=== PATIENT | male | born 1975 ===

== ENCOUNTER 2018-03-31 18:40 | Emergency (ER) | payer MEDICAID, MEDICARE ==
[2018-03-31 18:51] VITALS: BP 155/93; PULSE 90; TEMP 98.5; O2SAT 99
[2018-03-31] MEDS ORDERED: Lidocaine Hydrochloride 5 ML INJ ONE (19:21)
--- NOTE | 2018-03-31 19:57 | C.PDOC ---
History Of Present Illness 42 y/o male presents to the ER for evaluation of right ear laceration sustained 1 hour [facility]. Patient states that he was moving a sharp object when the object cut him in the ear. Patient denies having other injuries. Time Seen by Provider: 03/31/18 18:56 Chief Complaint (Nursing): Abnormal Skin Integrity History Per: Patient History/Exam Limitations: no limitations Onset/Duration Of Symptoms: Hrs Current Symptoms Are (Timing): Still Present Severity: Moderate Past Medical History Reviewed: Historical Data, Nursing Documentation, Vital Signs Vital Signs: Last Vital Signs Temp 98.5 F 03/31/18 18:50 Pulse 90 03/31/18 18:50 Resp 18 03/31/18 18:50 BP 155/93 H 03/31/18 18:50 Pulse Ox 99 03/31/18 18:50 - Medical History PMH: No Chronic Diseases Surgical History: No Surg Hx Family History: States: No Known Family Hx - Social History Hx Alcohol Use: Yes Hx Substance Use: No - Immunization History Hx Tetanus Toxoid Vaccination: No Hx Influenza Vaccination: No Hx Pneumococcal Vaccination: No Review Of Systems Except As Marked, All Systems Reviewed And Found Negative. Skin: Positive for: Other (laceration to right ear) Physical Exam - Physical Exam Appears: Non-toxic, No Acute Distress Skin: Normal Color, Warm, Dry Head: Atraumatic, Normacephalic Eye(s): bilateral: Normal Inspection, PERRL, EOMI Ear(s): Left: Normal, Right: Other (2.5 cm linear laceration through scaphoid fossa) Nose: Normal Oral Mucosa: Moist Neck: Normal ROM, Supple Chest: Symmetrical Extremity: Normal ROM, No Swelling Neurological/Psych: Oriented x3, Normal Speech, Normal Cranial Nerves Gait: Steady ED Course And Treatment O2 Sat by Pulse Oximetry: 99 (RA) Pulse Ox Interpretation: Normal Laceration - Laceration Repair Right Ear Wound Length (In cm): 2.5 Description Of Wound: Linear Wound Cleansed With: Betadine, Sterile Saline Anesthesia: Lidocaine 1%, With Epi Wound Examination: Irrigated With Saline, No FB With Wound Exploration Wound Closure: Skin Glue, Suture Suture Technique And Material Used: Nylon (Five (4-0 Nylon)) Wound Complexity: Simple Medical Decision Making Medical Decision Making: Tetanus is up to date. Laceration Repair was performed. Patient tolerated well. Patient has been discharged and instructed to follow up with PMD in 2 days and suture removal in 7-10 days. Disposition - Disposition Referrals: Leo Weaver MD [Staff Provider] - Kenna Oglesby MD [Staff Provider] - Disposition: HOME/ ROUTINE Disposition Time: 19:57 Condition: STABLE Additional Instructions: KEEP THE AREA CLEAN AND DRY. FOLLOW UP WITH DOCTOR WITHIN 1-2 DAYS FOR WOUND CHECK. SUTURES TO BE REMOVED WITHIN 7-10 DAYS. Instructions: Laceration Repair Forms: [employer] (Iraqi) - Clinical Impression Clinical Impression: Laceration of ear - PA / [facility] MANAGER / Resident Statement MD/DO has reviewed & agrees with the documentation as recorded. - Scribe Statement The provider has reviewed the documentation as recorded by the Jazmyneibe Mely Rowe Provider Attestation All medical record entries made by the Scribe were at my direction and personally dictated by me. I have reviewed the chart and agree that the record accurately reflects my personal performance of the history, physical exam, medical decision making, and the department course for this patient. I have also personally directed, reviewed, and agree with the discharge instructions and disposition.
[2018-03-31 20:09] VITALS: RESP 20
== END 2018-03-31 20:08 | disposition home or self-care (01) ==
LOC: C.ER 18:40
DX: S01.311A Laceration without foreign body of right ear, initial encounter (principal); W45.8XXA Other foreign body or object entering through skin, initial encounter

== ENCOUNTER 2018-04-09 19:02 | Emergency (ER) | payer MEDICAID ==
[2018-04-09 19:07] VITALS: BP 128/88; PULSE 77; RESP 16; TEMP 98; O2SAT 98
--- NOTE | 2018-04-09 19:19 | C.PDOC ---
History Of Present Illness 42-year-old male, seen in ED for right ear laceration repair on 03/31/18, returns today for suture removal. Patient denies any fevers, nausea/vomiting, infection, or any other associated symptoms. No other complaints at this time. Time Seen by Provider: 04/09/18 19:07 Chief Complaint (Nursing): Suture/Staple Removal History Per: Patient History/Exam Limitations: no limitations Past Medical History Reviewed: Historical Data, Nursing Documentation, Vital Signs Vital Signs: Last Vital Signs Temp 98.0 F 04/09/18 19:05 Pulse 77 04/09/18 19:05 Resp 16 04/09/18 19:05 BP 128/88 04/09/18 19:05 Pulse Ox 98 04/09/18 19:05 Family History: States: No Known Family Hx - Social History Hx Alcohol Use: Yes Hx Substance Use: No - Immunization History Hx Tetanus Toxoid Vaccination: No Hx Influenza Vaccination: No Hx Pneumococcal Vaccination: No Review Of Systems Constitutional: Negative for: Fever Gastrointestinal: Negative for: Nausea, Vomiting Skin: Negative for: Rash Neurological: Negative for: Weakness, Numbness, Headache, Dizziness Physical Exam - Physical Exam Appears: Non-toxic, No Acute Distress Skin: Warm, Dry, No Rash Head: Atraumatic Eye(s): bilateral: Normal Inspection Ear(s): Right: Other (five sutures in place, with glue covering sutures) Nose: Normal Oral Mucosa: Moist Lips: Normal Appearing Neck: Normal ROM Extremity: Normal ROM, No Deformity Neurological/Psych: Oriented x3, Normal Speech ED Course And Treatment O2 Sat by Pulse Oximetry: 98 Pulse Ox Interpretation: Normal (RA) Progress Note: 4 stiches were removad, remaining of glue were removed. 1 stich still attached. Wound is still open, steri strips were applied. Patient was referred to ENT for follow up. Disposition - Disposition Referrals: Joe Osborne MD [Staff Provider] - Disposition: HOME/ ROUTINE Disposition Time: 19:20 Condition: STABLE Additional Instructions: Follow up with PMD and ENT specialist within 1-2 days. Return to ED if child feels worse. Instructions: Wound Care (DC) Forms: [employer] (Bulgarian) - Clinical Impression Clinical Impression: Removal of suture - Scribe Statement The provider has reviewed the documentation as recorded by the Scribe (Blanca Ford) All medical record entries made by the Scribe were at my direction and personally dictated by me. I have reviewed the chart and agree that the record accurately reflects my personal performance of the history, physical exam, medical decision making, and the department course for this patient. I have also personally directed, reviewed, and agree with the discharge instructions and disposition.
== END 2018-04-09 19:45 | disposition home or self-care (01) ==
LOC: C.ER 19:02
DX: Z48.02 Encounter for removal of sutures (principal)